=== PATIENT | female | born 1965 | race African-American/Black ===

== ENCOUNTER 2020-06-22 16:14 | Inpatient (IN) | payer MEDICAID, OTHER, SELFPAY ==
[~2020-06-22] VITALS: Ht 165.1 cm; Wt 139.3 kg
[2020-06-22] MEDS: IPRATROPIUM/ALBUTEROL 0.5-3(2.5)MG/3ML NEB NEB SCH (02:24)
[2020-06-22] MEDS ORDERED: MIDAZOLAM HCL 100 MG in DEXT 5% WATER 80 ML IV ONE (16:45)
[2020-06-22] MEDS ORDERED: MIDAZOLAM HCL 100 MG in DEXT 5% WATER 80 ML IV PRN (17:00)
[2020-06-22] MEDS: MIDAZOLAM HCL 2 MG/2 ML VIAL IV ONE ×2 (17:13→17:51)
[2020-06-22 17:15] LABS: BASOPHILS % 0.6 % (0.0-2.0); EOSINOPHILS % 2.1 % (0.0-5.0); HEMATOCRIT. 40.2 % (36.0-48.0); HEMOGLOBIN. 12.8 g/dL (12.0-16.0); LYMPHOCYTES % 41.8 % (20.0-50.0); MEAN CORPUSCULAR HEMOGLOBIN 29.5 pg (28.0-32.0); MEAN CORPUSCULAR VOLUME 92.2 fL (81.0-99.0); MEAN PLATELET VOLUME 11.3 fl (7.4-10.4); MONOCYTES % 5.9 % (2.0-8.0); NEUTROPHILS % 49.6 % (40.0-76.0); PLATELET 327 x1000/uL (130-400); RED BLOOD CELL COUNT 4.36 mill/uL (4.2-5.4); RED CELL DISTRIBUTION WIDTH 16.4 % (11.6-14.6)
[2020-06-22 17:24] LABS: CHLORIDE 107 mEq/L (98-107)
[2020-06-22 17:27] LABS: BG BASE EXCESS -10.2 mmol/L (-2.0-2.0); BG CARBOXYHEMOGLOBIN 0.3 % (0.5-1.5); BG DEOXYHEMOGLOBIN 5.1 % (0.0-5.0); BG FRACTION INSPIRED OXYGEN 100; BG METHEMOGLOBIN 0.2 % (0.0-1.5); BG OXYGEN SATURATION 94.9 % (92.0-98.5); BG OXYHEMOGLOBIN 94.4 % (94.0-97.0); BG PCO2 55.3 mmHg (35.0-45.0); BG PH 7.153 (7.350-7.450); BG PO2 92.7 mmHg (75.0-100.0); BG SAMPLE SITE RIGHT RADIAL; BG TOTAL HEMOGLOBIN 13.8 g/dL (12.0-18.0); BG TOTAL RESPIRATORY RATE 21 b/min; BG VENT MODE VENT - AC
[2020-06-22 17:36] LABS: INR 1.1; PROTHROMBIN TIME 11.1 sec (9.6-11.0)
[2020-06-22] MEDS ORDERED: NITROGLYCERIN OINT 1GM/INCH UDPKT TD ONE (18:30)
[2020-06-22] MEDS ORDERED: ATROPINE SULFATE 1MG/10ML SYR ONE (19:30)
[2020-06-22] MEDS ORDERED: PROPOFOL 10MG/ML 100ML 100 ML IV SCH (19:30)
[2020-06-22] MEDS ORDERED: EPINEPHRINE 0.1MG/ML (1:10,000) 10ML SYR ONE (19:30)
[2020-06-22] MEDS ORDERED: PIPERACILLIN/TAZ 3.375G PREMIX 50 ML IV ONE (20:00)
[2020-06-22] MEDS ORDERED: VANCOMYCIN 1 G PREMIX 200 ML IV ONE (20:00)
[2020-06-22] MEDS ORDERED: IPRATROPIUM/ALBUTEROL 0.5-3(2.5)MG/3ML NEB NEB PRN (23:30)
[2020-06-22] MEDS ORDERED: ACETAMINOPHEN 325MG TABLET PO PRN (23:30)
[2020-06-22] MEDS ORDERED: ENOXAPARIN 40MG/0.4ML SYR SUBCUT SCH (23:30)
[2020-06-22] MEDS ORDERED: ONDANSETRON HCL 4MG/2ML INJ IV PRN (23:30)
[2020-06-23] VITALS (48 sets, daily range): BP systolic 68–203; BP diastolic 19–121
[2020-06-23] MEDS: FUROSEMIDE 40MG/4ML VIAL IV SCH ×2 (00:40→09:51)
[2020-06-23] MEDS ORDERED: KCL 20MEQ/100ML PREMIX 100 ML IV SCH (01:00)
[2020-06-23 01:45] LABS: CHLORIDE 109 mEq/L (98-107)
[2020-06-23 02:37] LABS: HCG SCREEN NEGATIVE
[2020-06-23] MEDS: PANTOPRAZOLE SODIUM 40 MG/VIAL IV SCH (04:00)
[2020-06-23] MEDS: IPRATROPIUM/ALBUTEROL 0.5-3(2.5)MG/3ML NEB NEB SCH ×5 (04:04→20:17)
[2020-06-23] MEDS ORDERED: PIPERACILLIN/TAZ 3.375G PREMIX 50 ML IV SCH (04:30)
[2020-06-23] MEDS ORDERED: IOHEXOL-350 100 ML BOTTLE ONE (06:18)
[2020-06-23] MEDS ORDERED: VANCOMYCIN 1 G PREMIX 200 ML IV SCH ×2 (08:00→10:00)
[2020-06-23] MEDS ORDERED: ENOXAPARIN 30MG/0.3ML SYR SUBCUT SCH (09:00)
[2020-06-23] MEDS ORDERED: PANTOPRAZOLE SODIUM 40 MG/VIAL IV SCH (10:45)
[2020-06-23] MEDS ORDERED: DEXTROSE 50% WATER 50ML SYRINGE IV PRN (10:45)
[2020-06-23 10:58] LABS: BG BASE EXCESS 2.2 mmol/L (-2.0-2.0); BG CARBOXYHEMOGLOBIN 0.1 % (0.5-1.5); BG FRACTION INSPIRED OXYGEN 100; BG HCO3 ACT 27.1 mmol/L (22.0-26.0); BG METHEMOGLOBIN 0.4 % (0.0-1.5); BG OXYHEMOGLOBIN 98.5 % (94.0-97.0); BG PCO2 43.3 mmHg (35.0-45.0); BG PH 7.415 (7.350-7.450); BG PO2 161.3 mmHg (75.0-100.0); BG SAMPLE SITE RIGHT RADIAL; BG TOTAL HEMOGLOBIN 14.2 g/dL (12.0-18.0); BG VENT MODE VENT - AC
[2020-06-23] MEDS ORDERED: PROPOFOL 10MG/ML 100ML 100 ML IV PRN (11:30)
[2020-06-23] MEDS ORDERED: FUROSEMIDE 40MG/4ML VIAL IVP NR (11:30)
[2020-06-23] MEDS ORDERED: POTASSIUM CHLORIDE 20MEQ/PACKET PO NR ×2 (11:45→20:16)
[2020-06-23 12:00] LABS: BASOPHILS % 0.8 % (0.0-2.0); CREATINE KINASE MB FRACTION 7.5 ng/mL (0.5-3.6); EOSINOPHILS % 0.1 % (0.0-5.0); HEMATOCRIT. 40.4 % (36.0-48.0); HEMOGLOBIN. 13.4 g/dL (12.0-16.0); LYMPHOCYTES % 9.5 % (20.0-50.0); MEAN CORPUSCULAR HEMOGLOBIN 29.2 pg (28.0-32.0); MEAN CORPUSCULAR VOLUME 88.1 fL (81.0-99.0); MEAN PLATELET VOLUME 10.3 fl (7.4-10.4); MONOCYTES % 6.5 % (2.0-8.0); NEUTROPHILS % 83.1 % (40.0-76.0); PLATELET 284 x1000/uL (130-400); RED BLOOD CELL COUNT 4.59 mill/uL (4.2-5.4); RED CELL DISTRIBUTION WIDTH 16.4 % (11.6-14.6)
[2020-06-23] MEDS ORDERED: PIPERACILLIN/TAZOBACTAM 3.375 G in DEXT 5% WATER 100 ML IV SCH (12:00)
[2020-06-23] MEDS: BLOOD SUGAR DIAGNOSTIC STRIP TEST SCH ×2 (12:07→16:54)
[2020-06-23] MEDS: PIPERACILLIN/TAZOBACTAM 3.375 G in DEXT 5% WATER 100 ML IV SCH ×2 (12:13→21:21)
[2020-06-23] MEDS: VANCOMYCIN 1 G PREMIX 200 ML IV SCH ×2 (12:13→21:22)
[2020-06-23] MEDS: INSULIN LISPRO 100 UNITS/ML SUBCUT SCH ×2 (12:27→16:54)
[2020-06-23] MEDS: NITROGLYCERIN 50MG PREMIX 250 ML IV SCH ×2 (12:34→22:11)
[2020-06-23 12:48] LABS: PHOSPHORUS 3.4 mg/dL (2.5-4.9)
[2020-06-23 12:52] LABS: T4 FREE 1.31 ng/dL (0.76-1.46)
[2020-06-23] MEDS: ASPIRIN 81MG TABLET PO SCH (13:11)
[2020-06-23] MEDS: LISINOPRIL 20MG TABLET PO SCH (13:12)
[2020-06-23] MEDS: PROPOFOL 10MG/ML 100ML 100 ML IV PRN ×2 (14:01→20:41)
[2020-06-23] MEDS: FUROSEMIDE 100MG/10ML VIAL IVP SCH (16:58)
[2020-06-23 17:13] LABS: CLARITY URINE CLEAR (CLEAR); COLOR URINE YELLOW (YELLOW); KETONES URINE NEGATIVE (NEGATIVE); LEUKOCYTE ESTERASE URINE NEGATIVE (NEGATIVE); NITRITE URINE NEGATIVE (NEGATIVE); OCCULT BLOOD URINE 2+ (NEGATIVE); PH URINE 7.5 (4.5-8.0); PROTEIN URINE NEGATIVE (NEGATIVE); SPECIFIC GRAVITY URINE 1.013 (1.005-1.030); UROBILINOGEN URINE 0.2 E.U./dL (0.2-1.0)
[2020-06-23 17:44] LABS: *AMPHETAMINES SCREEN URINE NEGATIVE (NEGATIVE); *BARBITURATES SCREEN URINE NEGATIVE (NEGATIVE)
[2020-06-23 17:45] LABS: *BENZODIAZEPINES SCREEN URINE PRESUMTIVE POSITIVE (NEGATIVE); *COCAINE SCREEN URINE NEGATIVE (NEGATIVE); CANNABINOID URINE SCREEN NEGATIVE (NEGATIVE); METHADONE URINE SCREEN NEGATIVE (NEGATIVE); OPIATES URINE SCREEN NEGATIVE (NEGATIVE); PHENCYCLIDINE URINE SCREEN NEGATIVE (NEGATIVE)
[2020-06-23 18:08] LABS: CREATINE KINASE MB FRACTION 4.4 ng/mL (0.5-3.6)
[2020-06-23 18:36] LABS: HEPATITIS B SURFACE ANTIGEN NEGATIVE
[2020-06-23 19:06] LABS: HEPATITIS A AB IGM NEGATIVE (NEGATIVE)
[2020-06-23] MEDS: CARVEDILOL 3.125 MG TABLET PO SCH (20:43)
[2020-06-23] MEDS: ACETAMINOPHEN 650MG/20.3ML UDC PO PRN (22:23)
[2020-06-24] VITALS (96 sets, daily range): BP systolic 96–182; BP diastolic 48–129
[2020-06-24] MEDS: INSULIN LISPRO 100 UNITS/ML SUBCUT SCH ×4 (00:06→18:00)
[2020-06-24] MEDS: BLOOD SUGAR DIAGNOSTIC STRIP TEST SCH ×4 (00:06→18:59)
[2020-06-24] MEDS: IPRATROPIUM/ALBUTEROL 0.5-3(2.5)MG/3ML NEB NEB SCH ×6 (00:08→20:13)
[2020-06-24] MEDS: PIPERACILLIN/TAZOBACTAM 3.375 G in DEXT 5% WATER 100 ML IV SCH ×3 (03:31→22:34)
[2020-06-24] MEDS ORDERED: POTASSIUM CHLORIDE 20MEQ/PACKET PO NR (08:30)
[2020-06-24 10:02] LABS: BG CARBOXYHEMOGLOBIN 0.5 % (0.5-1.5); BG DEOXYHEMOGLOBIN 4.8 % (0.0-5.0); BG FRACTION INSPIRED OXYGEN 50; BG HCO3 ACT 29.6 mmol/L (22.0-26.0); BG OXYGEN SATURATION 95.2 % (92.0-98.5); BG OXYHEMOGLOBIN 94.7 % (94.0-97.0); BG PCO2 39.5 mmHg (35.0-45.0); BG PH 7.493 (7.350-7.450); BG PO2 72.7 mmHg (75.0-100.0); BG SAMPLE SITE RIGHT RADIAL; BG VENT MODE VENT - AC
[2020-06-24] MEDS: PROPOFOL 10MG/ML 100ML 100 ML IV PRN (10:23)
[2020-06-24] MEDS: PANTOPRAZOLE SODIUM 40 MG/VIAL IV SCH (10:24)
[2020-06-24] MEDS: NITROGLYCERIN 50MG PREMIX 250 ML IV SCH ×3 (10:24→22:39)
[2020-06-24] MEDS: ASPIRIN 81MG TABLET PO SCH (10:25)
[2020-06-24] MEDS: LISINOPRIL 20MG TABLET PO SCH (10:25)
[2020-06-24] MEDS: CARVEDILOL 3.125 MG TABLET PO SCH ×2 (10:26→22:36)
[2020-06-24] MEDS: FUROSEMIDE 100MG/10ML VIAL IVP SCH (12:05)
[2020-06-24 13:06] LABS: HIV SCREEN 4G Non Reactive (Non Reactive)
[2020-06-24] MEDS: VANCOMYCIN 1500MG in DEXTROSE 5% WATER 250ML IV SCH (18:58)
[2020-06-24] MEDS: FUROSEMIDE 40MG/4ML VIAL IVP SCH (18:58)
[2020-06-25] VITALS (95 sets, daily range): BP systolic 117–162; BP diastolic 33–98
[2020-06-25] MEDS: IPRATROPIUM/ALBUTEROL 0.5-3(2.5)MG/3ML NEB NEB SCH ×7 (00:20→23:59)
[2020-06-25] MEDS: PIPERACILLIN/TAZOBACTAM 3.375 G in DEXT 5% WATER 100 ML IV SCH ×4 (04:48→23:27)
[2020-06-25 05:33] LABS: BASOPHILS % 0.4 % (0.0-2.0); EOSINOPHILS % 0.6 % (0.0-5.0); HEMATOCRIT. 33.8 % (36.0-48.0); HEMOGLOBIN. 11.3 g/dL (12.0-16.0); LYMPHOCYTES % 13.7 % (20.0-50.0); MEAN CORPUSCULAR HEMOGLOBIN 29.2 pg (28.0-32.0); MEAN CORPUSCULAR VOLUME 87.5 fL (81.0-99.0); MEAN PLATELET VOLUME 10.5 fl (7.4-10.4); MONOCYTES % 10.8 % (2.0-8.0); NEUTROPHILS % 74.5 % (40.0-76.0); PLATELET 236 x1000/uL (130-400); RED BLOOD CELL COUNT 3.86 mill/uL (4.2-5.4); RED CELL DISTRIBUTION WIDTH 15.9 % (11.6-14.6)
[2020-06-25 05:35] LABS: CHLORIDE 105 mEq/L (98-107)
[2020-06-25 05:47] LABS: PHOSPHORUS 2.6 mg/dL (2.5-4.9)
[2020-06-25] MEDS: INSULIN LISPRO 100 UNITS/ML SUBCUT SCH ×5 (06:00→23:28)
[2020-06-25] MEDS: BLOOD SUGAR DIAGNOSTIC STRIP TEST SCH ×5 (06:00→23:28)
[2020-06-25] MEDS ORDERED: POTASSIUM CHLORIDE 20MEQ/PACKET PO ONE (09:30)
[2020-06-25] MEDS: ASPIRIN 81MG TABLET PO SCH (09:38)
[2020-06-25] MEDS: FUROSEMIDE 40MG/4ML VIAL IVP SCH ×2 (09:38→17:37)
[2020-06-25] MEDS: PANTOPRAZOLE SODIUM 40 MG/VIAL IV SCH (09:38)
[2020-06-25] MEDS: CARVEDILOL 3.125 MG TABLET PO SCH (09:39)
[2020-06-25] MEDS: LISINOPRIL 20MG TABLET PO SCH (09:40)
[2020-06-25] MEDS ORDERED: LISINOPRIL 20MG TABLET PO NR (10:00)
[2020-06-25 10:19] LABS: BG BASE EXCESS -0.5 mmol/L (-2.0-2.0); BG CARBOXYHEMOGLOBIN 0.3 % (0.5-1.5); BG DEOXYHEMOGLOBIN 3.1 % (0.0-5.0); BG FRACTION INSPIRED OXYGEN 40; BG METHEMOGLOBIN 0.3 % (0.0-1.5); BG OXYGEN SATURATION 96.9 % (92.0-98.5); BG OXYHEMOGLOBIN 96.3 % (94.0-97.0); BG PCO2 29.7 mmHg (35.0-45.0); BG PH 7.487 (7.350-7.450); BG SAMPLE SITE RIGHT RADIAL; BG TOTAL HEMOGLOBIN 12.5 g/dL (12.0-18.0); BG TOTAL RESPIRATORY RATE 23 b/min; BG VENT MODE VENT - AC
[2020-06-25] MEDS: POTASSIUM CHLORIDE INJ 40 MEQ in DEXT 5% WATER 250 ML IV SCH ×3 (10:53→23:27)
[2020-06-25] MEDS: NITROGLYCERIN 50MG PREMIX 250 ML IV SCH ×3 (12:16→22:08)
[2020-06-25 16:49] LABS: CHLORIDE 105 mEq/L (98-107)
[2020-06-25] MEDS: VANCOMYCIN 1500MG in DEXTROSE 5% WATER 250ML IV SCH (18:17)
[2020-06-25] MEDS: CARVEDILOL 12.5MG TABLET PO SCH (20:37)
[2020-06-25] MEDS: PROPOFOL 10MG/ML 100ML 100 ML IV PRN (23:36)
[2020-06-26] VITALS (90 sets, daily range): BP systolic 90–185; BP diastolic 51–105
[2020-06-26] MEDS: LABETALOL 5MG/ML SYR 20 MG/4 ML SYRINGE IV PRN (02:24)
[2020-06-26] MEDS: NITROGLYCERIN 50MG PREMIX 250 ML IV SCH ×2 (02:34→08:14)
[2020-06-26] MEDS: IPRATROPIUM/ALBUTEROL 0.5-3(2.5)MG/3ML NEB NEB SCH ×5 (03:54→20:26)
[2020-06-26] MEDS ORDERED: NICARDIPINE 100 MG in SODIUM CHLORIDE 0.9% 60 ML IV PRN (04:15)
[2020-06-26] MEDS: NICARDIPINE 40MG/200ML PREMIX 200 ML IV PRN ×2 (04:17→12:07)
[2020-06-26 05:39] LABS: BASOPHILS % 0.4 % (0.0-2.0); EOSINOPHILS % 1.9 % (0.0-5.0); HEMATOCRIT. 35.4 % (36.0-48.0); HEMOGLOBIN. 11.8 g/dL (12.0-16.0); LYMPHOCYTES % 10.6 % (20.0-50.0); MEAN CORPUSCULAR HEMOGLOBIN 29.4 pg (28.0-32.0); MEAN CORPUSCULAR VOLUME 88.3 fL (81.0-99.0); MEAN PLATELET VOLUME 10.3 fl (7.4-10.4); MONOCYTES % 9.6 % (2.0-8.0); NEUTROPHILS % 77.5 % (40.0-76.0); PLATELET 250 x1000/uL (130-400); RED BLOOD CELL COUNT 4.01 mill/uL (4.2-5.4); RED CELL DISTRIBUTION WIDTH 16.2 % (11.6-14.6)
[2020-06-26 05:48] LABS: CHLORIDE 105 mEq/L (98-107)
[2020-06-26] MEDS: INSULIN LISPRO 100 UNITS/ML SUBCUT SCH ×4 (06:00→23:27)
[2020-06-26] MEDS: BLOOD SUGAR DIAGNOSTIC STRIP TEST SCH ×4 (06:13→23:27)
[2020-06-26] MEDS: PIPERACILLIN/TAZOBACTAM 3.375 G in DEXT 5% WATER 100 ML IV SCH ×4 (06:13→23:27)
[2020-06-26] MEDS: FUROSEMIDE 40MG/4ML VIAL IVP SCH ×2 (06:16→17:13)
[2020-06-26] MEDS ORDERED: POTASSIUM CHLORIDE 20MEQ/PACKET PO NR (08:00)
[2020-06-26] MEDS: CARVEDILOL 12.5MG TABLET PO SCH ×2 (08:15→22:15)
[2020-06-26] MEDS: PANTOPRAZOLE SODIUM 40 MG/VIAL IV SCH (08:16)
[2020-06-26] MEDS: ASPIRIN 81MG TABLET PO SCH (08:17)
[2020-06-26] MEDS: LISINOPRIL 40MG TABLET PO SCH (08:17)
[2020-06-26 08:35] LABS: BG BASE EXCESS 3.7 mmol/L (-2.0-2.0); BG CARBOXYHEMOGLOBIN 0.9 % (0.5-1.5); BG DEOXYHEMOGLOBIN 3.3 % (0.0-5.0); BG HCO3 ACT 26.8 mmol/L (22.0-26.0); BG METHEMOGLOBIN 0.4 % (0.0-1.5); BG OXYGEN SATURATION 96.7 % (92.0-98.5); BG OXYHEMOGLOBIN 95.4 % (94.0-97.0); BG PCO2 36.1 mmHg (35.0-45.0); BG PH 7.489 (7.350-7.450); BG PO2 82.8 mmHg (75.0-100.0); BG SAMPLE SITE RIGHT RADIAL; BG TOTAL HEMOGLOBIN 15.2 g/dL (12.0-18.0); BG VENT MODE VENT - AC
[2020-06-26] MEDS: ENOXAPARIN 40MG/0.4ML SYR SUBCUT SCH ×2 (09:03→21:00)
[2020-06-26] MEDS ORDERED: VANCOMYCIN 1 G PREMIX 200 ML IV SCH (11:00)
[2020-06-26] MEDS: HYDRALAZINE HCL 25MG TABLET PO SCH ×2 (14:00→22:21)
[2020-06-26] MEDS: PROPOFOL 10MG/ML 100ML 100 ML IV PRN (16:17)
[2020-06-27] VITALS (84 sets, daily range): BP systolic 42–163; BP diastolic 16–104
[2020-06-27] MEDS: IPRATROPIUM/ALBUTEROL 0.5-3(2.5)MG/3ML NEB NEB SCH ×6 (00:11→20:31)
[2020-06-27] MEDS: PROPOFOL 10MG/ML 100ML 100 ML IV PRN ×5 (00:41→20:34)
[2020-06-27] MEDS: NICARDIPINE 40MG/200ML PREMIX 200 ML IV PRN ×2 (01:41→19:41)
[2020-06-27] MEDS: PIPERACILLIN/TAZOBACTAM 3.375 G in DEXT 5% WATER 100 ML IV SCH ×3 (05:39→18:09)
[2020-06-27] MEDS: HYDRALAZINE HCL 25MG TABLET PO SCH ×2 (05:40→15:04)
[2020-06-27] MEDS: BLOOD SUGAR DIAGNOSTIC STRIP TEST SCH ×4 (05:47→23:45)
[2020-06-27] MEDS: INSULIN LISPRO 100 UNITS/ML SUBCUT SCH ×4 (05:47→23:45)
[2020-06-27 05:50] LABS: BASOPHILS % 0.8 % (0.0-2.0); EOSINOPHILS % 4.3 % (0.0-5.0); HEMATOCRIT. 39.8 % (36.0-48.0); HEMOGLOBIN. 13.2 g/dL (12.0-16.0); LYMPHOCYTES % 14.4 % (20.0-50.0); MEAN CORPUSCULAR HEMOGLOBIN 29.1 pg (28.0-32.0); MEAN PLATELET VOLUME 10.6 fl (7.4-10.4); NEUTROPHILS % 68.5 % (40.0-76.0); PLATELET 318 x1000/uL (130-400); RED BLOOD CELL COUNT 4.52 mill/uL (4.2-5.4); RED CELL DISTRIBUTION WIDTH 16.3 % (11.6-14.6)
[2020-06-27 05:51] LABS: CHLORIDE 106 mEq/L (98-107)
[2020-06-27 08:44] LABS: BG BASE EXCESS 4.6 mmol/L (-2.0-2.0); BG CARBOXYHEMOGLOBIN 0.3 % (0.5-1.5); BG DEOXYHEMOGLOBIN 2.7 % (0.0-5.0); BG FRACTION INSPIRED OXYGEN 50; BG HCO3 ACT 27.2 mmol/L (22.0-26.0); BG METHEMOGLOBIN 0.1 % (0.0-1.5); BG OXYGEN SATURATION 97.3 % (92.0-98.5); BG OXYHEMOGLOBIN 96.9 % (94.0-97.0); BG PCO2 33.9 mmHg (35.0-45.0); BG PH 7.522 (7.350-7.450); BG PO2 86.7 mmHg (75.0-100.0); BG SAMPLE SITE RIGHT RADIAL; BG TOTAL HEMOGLOBIN 13.2 g/dL (12.0-18.0); BG VENT MODE VENT - AC
[2020-06-27] MEDS: ASPIRIN 81MG TABLET PO SCH (08:58)
[2020-06-27] MEDS: CARVEDILOL 12.5MG TABLET PO SCH ×2 (08:59→20:02)
[2020-06-27] MEDS: PANTOPRAZOLE SODIUM 40 MG/VIAL IV SCH (08:59)
[2020-06-27] MEDS: ENOXAPARIN 40MG/0.4ML SYR SUBCUT SCH ×2 (09:27→20:03)
[2020-06-27] MEDS: LISINOPRIL 40MG TABLET PO SCH (09:34)
[2020-06-27] MEDS: FUROSEMIDE 40MG/4ML VIAL IVP SCH (09:34)
[2020-06-27] MEDS ORDERED: POTASSIUM CHLORIDE INJ 30 MEQ in DEXT 5% WATER 250 ML IV NR (13:00)
[2020-06-27] MEDS: ACETAMINOPHEN 650MG/20.3ML UDC PO PRN (20:01)
[2020-06-27] MEDS: HYDRALAZINE HCL 50MG TABLET PO SCH (21:46)
[2020-06-27] MEDS: NICARDIPINE 100 MG in SODIUM CHLORIDE 0.9% 60 ML IV PRN (23:30)
[2020-06-28] VITALS (78 sets, daily range): BP systolic 80–162; BP diastolic 32–79
[2020-06-28] MEDS: PROPOFOL 10MG/ML 100ML 100 ML IV PRN ×7 (00:02→23:35)
[2020-06-28] MEDS: IPRATROPIUM/ALBUTEROL 0.5-3(2.5)MG/3ML NEB NEB SCH ×7 (00:11→23:51)
[2020-06-28] MEDS: ACETAMINOPHEN 650MG/20.3ML UDC PO PRN (04:45)
[2020-06-28] MEDS: HYDRALAZINE HCL 50MG TABLET PO SCH ×4 (05:22→22:20)
[2020-06-28 05:38] LABS: BASOPHILS % 0.7 % (0.0-2.0); HEMATOCRIT. 38.5 % (36.0-48.0); HEMOGLOBIN. 12.6 g/dL (12.0-16.0); LYMPHOCYTES % 15.2 % (20.0-50.0); MEAN CORPUSCULAR HEMOGLOBIN 29.3 pg (28.0-32.0); MEAN CORPUSCULAR VOLUME 89.5 fL (81.0-99.0); MEAN PLATELET VOLUME 10.4 fl (7.4-10.4); MONOCYTES % 9.1 % (2.0-8.0); PLATELET 281 x1000/uL (130-400); RED BLOOD CELL COUNT 4.31 mill/uL (4.2-5.4); RED CELL DISTRIBUTION WIDTH 16.4 % (11.6-14.6)
[2020-06-28 05:47] LABS: CHLORIDE 107 mEq/L (98-107)
[2020-06-28] MEDS: INSULIN LISPRO 100 UNITS/ML SUBCUT SCH ×3 (06:00→17:26)
[2020-06-28] MEDS: BLOOD SUGAR DIAGNOSTIC STRIP TEST SCH ×3 (06:01→17:19)
[2020-06-28 08:06] LABS: BG BASE EXCESS -9.9 mmol/L (-2.0-2.0); BG CARBOXYHEMOGLOBIN 0.3 % (0.5-1.5); BG FRACTION INSPIRED OXYGEN 50; BG HCO3 ACT 14.1 mmol/L (22.0-26.0); BG METHEMOGLOBIN 0.2 % (0.0-1.5); BG OXYHEMOGLOBIN 97.5 % (94.0-97.0); BG PCO2 25.6 mmHg (35.0-45.0); BG PH 7.358 (7.350-7.450); BG PO2 129.2 mmHg (75.0-100.0); BG SAMPLE SITE RIGHT BRACHIAL; BG TOTAL HEMOGLOBIN 11.1 g/dL (12.0-18.0); BG VENT MODE VENT - AC
[2020-06-28] MEDS: FUROSEMIDE 40MG/4ML VIAL IVP SCH (08:23)
[2020-06-28] MEDS: PANTOPRAZOLE SODIUM 40 MG/VIAL IV SCH (08:23)
[2020-06-28] MEDS: ENOXAPARIN 40MG/0.4ML SYR SUBCUT SCH ×2 (08:24→21:04)
[2020-06-28] MEDS: CARVEDILOL 6.25 MG TABLET PO SCH ×2 (08:25→20:51)
[2020-06-28] MEDS: LISINOPRIL 40MG TABLET PO SCH (08:25)
[2020-06-28] MEDS: ASPIRIN 81MG TABLET PO SCH (08:25)
[2020-06-28] MEDS: NICARDIPINE 100 MG in SODIUM CHLORIDE 0.9% 60 ML IV PRN ×2 (08:44→17:58)
[2020-06-28] MEDS ORDERED: LISI-604 MT (12:51)
[2020-06-28] MEDS ORDERED: POTASSIUM CHLORIDE INJ 40 MEQ in DEXT 5% WATER 250 ML IV NR (14:00)
[2020-06-29] VITALS (101 sets, daily range): BP systolic 81–189; BP diastolic 22–167
[2020-06-29] MEDS: BLOOD SUGAR DIAGNOSTIC STRIP TEST SCH ×4 (00:01→17:47)
[2020-06-29] MEDS: IPRATROPIUM/ALBUTEROL 0.5-3(2.5)MG/3ML NEB NEB SCH ×5 (03:55→19:53)
[2020-06-29] MEDS: PROPOFOL 10MG/ML 100ML 100 ML IV PRN ×6 (04:25→23:30)
[2020-06-29] MEDS: NICARDIPINE 100 MG in SODIUM CHLORIDE 0.9% 60 ML IV PRN (04:26)
[2020-06-29 05:32] LABS: BASOPHILS % 0.6 % (0.0-2.0); EOSINOPHILS % 1.2 % (0.0-5.0); HEMATOCRIT. 37.5 % (36.0-48.0); HEMOGLOBIN. 12.4 g/dL (12.0-16.0); LYMPHOCYTES % 9.9 % (20.0-50.0); MEAN CORPUSCULAR HEMOGLOBIN 29.4 pg (28.0-32.0); MEAN PLATELET VOLUME 10.7 fl (7.4-10.4); MONOCYTES % 9.4 % (2.0-8.0); NEUTROPHILS % 78.9 % (40.0-76.0); PLATELET 280 x1000/uL (130-400); RED BLOOD CELL COUNT 4.21 mill/uL (4.2-5.4); RED CELL DISTRIBUTION WIDTH 16.7 % (11.6-14.6)
[2020-06-29 05:58] LABS: CHLORIDE 108 mEq/L (98-107)
[2020-06-29] MEDS: INSULIN LISPRO 100 UNITS/ML SUBCUT SCH ×4 (06:00→17:47)
[2020-06-29] MEDS: HYDRALAZINE HCL 50MG TABLET PO SCH (06:38)
[2020-06-29] MEDS: FUROSEMIDE 40MG/4ML VIAL IVP SCH (09:07)
[2020-06-29] MEDS: PANTOPRAZOLE SODIUM 40 MG/VIAL IV SCH (09:07)
[2020-06-29] MEDS: ASPIRIN 81MG TABLET PO SCH (09:07)
[2020-06-29] MEDS: LISINOPRIL 40MG TABLET PO SCH (09:07)
[2020-06-29] MEDS: CARVEDILOL 6.25 MG TABLET PO SCH ×2 (09:17→20:54)
[2020-06-29] MEDS: ENOXAPARIN 40MG/0.4ML SYR SUBCUT SCH ×2 (09:18→20:58)
[2020-06-29] MEDS: ACETAMINOPHEN 650MG/20.3ML UDC PO PRN (09:18)
[2020-06-29 09:20] LABS: BG BASE EXCESS 1.6 mmol/L (-2.0-2.0); BG CARBOXYHEMOGLOBIN 0.3 % (0.5-1.5); BG DEOXYHEMOGLOBIN 2.5 % (0.0-5.0); BG FRACTION INSPIRED OXYGEN 50; BG HCO3 ACT 25.4 mmol/L (22.0-26.0); BG METHEMOGLOBIN 0.4 % (0.0-1.5); BG OXYGEN SATURATION 97.5 % (92.0-98.5); BG OXYHEMOGLOBIN 96.8 % (94.0-97.0); BG PH 7.454 (7.350-7.450); BG PO2 97.9 mmHg (75.0-100.0); BG SAMPLE SITE RIGHT RADIAL; BG TOTAL HEMOGLOBIN 12.8 g/dL (12.0-18.0); BG VENT MODE VENT - AC
[2020-06-29] MEDS: HYDRALAZINE HCL 100MG TABLET PO SCH ×2 (13:28→22:05)
[2020-06-29] MEDS: NITROPRUSSIDE 50 MG in SODIUM CHLORIDE 0.9% 250 ML IV PRN (15:24)
[2020-06-29] MEDS ORDERED: POTASSIUM CHLORIDE INJ 40 MEQ in DEXT 5% WATER 250 ML IV NR (16:30)
[2020-06-29] MEDS: FUROSEMIDE 40MG TABLET PO SCH (20:53)
[2020-06-30] VITALS (90 sets, daily range): BP systolic 79–167; BP diastolic 28–132
[2020-06-30] MEDS: IPRATROPIUM/ALBUTEROL 0.5-3(2.5)MG/3ML NEB NEB SCH ×6 (00:23→19:56)
[2020-06-30] MEDS: BLOOD SUGAR DIAGNOSTIC STRIP TEST SCH ×4 (00:58→17:30)
[2020-06-30] MEDS: NITROPRUSSIDE 50 MG in SODIUM CHLORIDE 0.9% 250 ML IV PRN ×2 (01:31→09:29)
[2020-06-30] MEDS: PROPOFOL 10MG/ML 100ML 100 ML IV PRN ×6 (03:52→20:40)
[2020-06-30] MEDS: HYDRALAZINE HCL 100MG TABLET PO SCH ×3 (05:42→21:25)
[2020-06-30 05:55] LABS: CHLORIDE 110 mEq/L (98-107)
[2020-06-30] MEDS: INSULIN LISPRO 100 UNITS/ML SUBCUT SCH ×4 (06:00→17:30)
[2020-06-30 06:09] LABS: BASOPHILS % 0.8 % (0.0-2.0); EOSINOPHILS % 1.2 % (0.0-5.0); HEMATOCRIT. 35.8 % (36.0-48.0); HEMOGLOBIN. 11.8 g/dL (12.0-16.0); LYMPHOCYTES % 10.7 % (20.0-50.0); MEAN CORPUSCULAR HEMOGLOBIN 29.1 pg (28.0-32.0); MEAN CORPUSCULAR VOLUME 88.1 fL (81.0-99.0); MEAN PLATELET VOLUME 10.4 fl (7.4-10.4); MONOCYTES % 11.7 % (2.0-8.0); NEUTROPHILS % 75.6 % (40.0-76.0); PLATELET 301 x1000/uL (130-400); RED BLOOD CELL COUNT 4.06 mill/uL (4.2-5.4); RED CELL DISTRIBUTION WIDTH 16.5 % (11.6-14.6)
[2020-06-30] MEDS ORDERED: PROPOFOL 10MG/ML 100ML 100 ML IV SCH (08:00)
[2020-06-30] MEDS: FUROSEMIDE 40MG TABLET PO SCH ×2 (08:39→20:58)
[2020-06-30] MEDS: PANTOPRAZOLE SODIUM 40 MG/VIAL IV SCH (08:39)
[2020-06-30] MEDS: ASPIRIN 81MG TABLET PO SCH (08:40)
[2020-06-30] MEDS: CARVEDILOL 6.25 MG TABLET PO SCH ×2 (08:40→20:59)
[2020-06-30] MEDS: LISINOPRIL 40MG TABLET PO SCH (08:40)
[2020-06-30] MEDS: ENOXAPARIN 40MG/0.4ML SYR SUBCUT SCH ×2 (08:41→20:59)
[2020-06-30 09:01] LABS: BG BASE EXCESS 3.4 mmol/L (-2.0-2.0); BG CARBOXYHEMOGLOBIN 0.3 % (0.5-1.5); BG DEOXYHEMOGLOBIN 3.2 % (0.0-5.0); BG HCO3 ACT 26.6 mmol/L (22.0-26.0); BG METHEMOGLOBIN 0.2 % (0.0-1.5); BG OXYGEN SATURATION 96.8 % (92.0-98.5); BG OXYHEMOGLOBIN 96.3 % (94.0-97.0); BG PH 7.487 (7.350-7.450); BG PO2 84.4 mmHg (75.0-100.0); BG SAMPLE SITE RIGHT RADIAL; BG TOTAL HEMOGLOBIN 12.9 g/dL (12.0-18.0); BG VENT MODE VENT - AC
[2020-06-30] MEDS ORDERED: LEVETIRACETAM 500 MG in SODIUM CHLORIDE 0.9% 100 ML IV SCH (10:30)
[2020-06-30] MEDS: LEVETIRACETAM 500MG PREMIX 100 ML IV SCH ×2 (12:39→20:52)
[2020-07-01] VITALS (96 sets, daily range): BP systolic 42–161; BP diastolic 20–141
[2020-07-01] MEDS: IPRATROPIUM/ALBUTEROL 0.5-3(2.5)MG/3ML NEB NEB SCH ×6 (00:06→20:33)
[2020-07-01] MEDS: PROPOFOL 10MG/ML 100ML 100 ML IV PRN ×7 (00:24→21:42)
[2020-07-01] MEDS: BLOOD SUGAR DIAGNOSTIC STRIP TEST SCH ×5 (00:42→23:50)
[2020-07-01] MEDS: HYDRALAZINE HCL 100MG TABLET PO SCH ×3 (05:36→22:38)
[2020-07-01 05:43] LABS: HEMATOCRIT. 36.5 % (36.0-48.0); HEMOGLOBIN. 11.9 g/dL (12.0-16.0); MEAN CORPUSCULAR HEMOGLOBIN 28.9 pg (28.0-32.0); MEAN CORPUSCULAR VOLUME 88.4 fL (81.0-99.0); MEAN PLATELET VOLUME 10.4 fl (7.4-10.4); PLATELET 310 x1000/uL (130-400); RED BLOOD CELL COUNT 4.13 mill/uL (4.2-5.4); RED CELL DISTRIBUTION WIDTH 16.6 % (11.6-14.6)
[2020-07-01] MEDS: INSULIN LISPRO 100 UNITS/ML SUBCUT SCH ×5 (06:00→23:50)
[2020-07-01 06:12] LABS: CHLORIDE 113 mEq/L (98-107)
[2020-07-01] MEDS: LISINOPRIL 40MG TABLET PO SCH (08:23)
[2020-07-01] MEDS: ASPIRIN 81MG TABLET PO SCH (08:23)
[2020-07-01] MEDS: FUROSEMIDE 40MG TABLET PO SCH ×2 (08:25→20:23)
[2020-07-01] MEDS: CARVEDILOL 6.25 MG TABLET PO SCH (08:25)
[2020-07-01] MEDS: PANTOPRAZOLE SODIUM 40 MG/VIAL IV SCH (08:25)
[2020-07-01] MEDS: ENOXAPARIN 40MG/0.4ML SYR SUBCUT SCH ×2 (08:26→20:23)
[2020-07-01] MEDS ORDERED: SPIRONOLACTONE 25MG TABLET PO SCH (09:00)
[2020-07-01 09:54] LABS: PLATELET ESTIMATE NORMAL
[2020-07-01] MEDS: LEVETIRACETAM 500MG PREMIX 100 ML IV SCH ×2 (10:00→20:22)
[2020-07-01] MEDS ORDERED: ISOSORBIDE MONONITRATE 30MG TABLET SR 24HR PO SCH (13:00)
[2020-07-01] MEDS: ISOSORBIDE DINITRATE 10MG TABLET PO SCH (18:03)
[2020-07-01] MEDS: CARVEDILOL 12.5MG TABLET PO SCH (20:23)
[2020-07-01] MEDS: ACETAMINOPHEN 650MG/20.3ML UDC PO PRN (21:10)
[2020-07-02] VITALS (98 sets, daily range): BP systolic 89–156; BP diastolic 39–109
[2020-07-02] MEDS: IPRATROPIUM/ALBUTEROL 0.5-3(2.5)MG/3ML NEB NEB SCH ×6 (00:21→20:06)
[2020-07-02] MEDS: PROPOFOL 10MG/ML 100ML 100 ML IV PRN ×6 (00:55→23:26)
[2020-07-02 05:35] LABS: BASOPHILS % 0.7 % (0.0-2.0); EOSINOPHILS % 0.4 % (0.0-5.0); HEMATOCRIT. 37.6 % (36.0-48.0); HEMOGLOBIN. 12.4 g/dL (12.0-16.0); LYMPHOCYTES % 7.2 % (20.0-50.0); MEAN CORPUSCULAR HEMOGLOBIN 29.3 pg (28.0-32.0); MEAN CORPUSCULAR VOLUME 88.8 fL (81.0-99.0); MEAN PLATELET VOLUME 10.8 fl (7.4-10.4); MONOCYTES % 14.7 % (2.0-8.0); PLATELET 281 x1000/uL (130-400); RED BLOOD CELL COUNT 4.24 mill/uL (4.2-5.4); RED CELL DISTRIBUTION WIDTH 16.7 % (11.6-14.6)
[2020-07-02 05:43] LABS: CHLORIDE 111 mEq/L (98-107)
[2020-07-02] MEDS: INSULIN LISPRO 100 UNITS/ML SUBCUT SCH ×3 (06:00→17:46)
[2020-07-02] MEDS: HYDRALAZINE HCL 100MG TABLET PO SCH ×3 (06:35→18:01)
[2020-07-02] MEDS: BLOOD SUGAR DIAGNOSTIC STRIP TEST SCH ×3 (06:36→17:46)
[2020-07-02] MEDS: ACETAMINOPHEN 650MG/20.3ML UDC PO PRN (08:17)
[2020-07-02] MEDS: ASPIRIN 81MG TABLET PO SCH (08:25)
[2020-07-02] MEDS: LEVETIRACETAM 500MG PREMIX 100 ML IV SCH ×2 (08:25→20:38)
[2020-07-02] MEDS: FUROSEMIDE 40MG TABLET PO SCH ×2 (08:25→20:38)
[2020-07-02] MEDS: CARVEDILOL 12.5MG TABLET PO SCH ×2 (08:25→20:39)
[2020-07-02] MEDS: LISINOPRIL 40MG TABLET PO SCH (08:25)
[2020-07-02] MEDS: PANTOPRAZOLE SODIUM 40 MG/VIAL IV SCH (08:26)
[2020-07-02] MEDS: ISOSORBIDE DINITRATE 10MG TABLET PO SCH ×2 (08:26→12:57)
[2020-07-02] MEDS: SPIRONOLACTONE 25MG TABLET PO SCH (08:26)
[2020-07-02] MEDS: ENOXAPARIN 40MG/0.4ML SYR SUBCUT SCH ×2 (08:27→20:10)
[2020-07-02 09:09] LABS: BG BASE EXCESS 2.3 mmol/L (-2.0-2.0); BG CARBOXYHEMOGLOBIN 0.1 % (0.5-1.5); BG FRACTION INSPIRED OXYGEN 50; BG HCO3 ACT 25.3 mmol/L (22.0-26.0); BG METHEMOGLOBIN 0.2 % (0.0-1.5); BG OXYHEMOGLOBIN 96.7 % (94.0-97.0); BG PO2 92.1 mmHg (75.0-100.0); BG SAMPLE SITE RIGHT RADIAL; BG VENT MODE VENT - AC
[2020-07-02] MEDS: CEFEPIME 1,000 MG in DEXTROSE 5% WATER 50 ML IV SCH (22:14)
[2020-07-03] VITALS (97 sets, daily range): BP systolic 95–155; BP diastolic 40–88
[2020-07-03] MEDS: IPRATROPIUM/ALBUTEROL 0.5-3(2.5)MG/3ML NEB NEB SCH ×6 (00:14→19:45)
[2020-07-03] MEDS: BLOOD SUGAR DIAGNOSTIC STRIP TEST SCH ×4 (00:33→17:25)
[2020-07-03] MEDS: PROPOFOL 10MG/ML 100ML 100 ML IV PRN ×5 (02:25→23:20)
[2020-07-03] MEDS: INSULIN LISPRO 100 UNITS/ML SUBCUT SCH ×4 (06:00→17:25)
[2020-07-03 06:04] LABS: BASOPHILS % 0.5 % (0.0-2.0); EOSINOPHILS % 0.6 % (0.0-5.0); HEMATOCRIT. 32.8 % (36.0-48.0); HEMOGLOBIN. 10.6 g/dL (12.0-16.0); LYMPHOCYTES % 7.4 % (20.0-50.0); MEAN CORPUSCULAR HEMOGLOBIN 28.8 pg (28.0-32.0); MEAN CORPUSCULAR VOLUME 88.8 fL (81.0-99.0); MONOCYTES % 8.1 % (2.0-8.0); NEUTROPHILS % 83.4 % (40.0-76.0); PLATELET 288 x1000/uL (130-400); RED BLOOD CELL COUNT 3.69 mill/uL (4.2-5.4); RED CELL DISTRIBUTION WIDTH 16.7 % (11.6-14.6)
[2020-07-03] MEDS: HYDRALAZINE HCL 100MG TABLET PO SCH ×2 (06:06→17:51)
[2020-07-03 07:04] LABS: BG BASE EXCESS 0.7 mmol/L (-2.0-2.0); BG CARBOXYHEMOGLOBIN 0.4 % (0.5-1.5); BG DEOXYHEMOGLOBIN 4.1 % (0.0-5.0); BG FRACTION INSPIRED OXYGEN 40; BG HCO3 ACT 24.2 mmol/L (22.0-26.0); BG METHEMOGLOBIN 0.8 % (0.0-1.5); BG OXYGEN SATURATION 95.9 % (92.0-98.5); BG OXYHEMOGLOBIN 94.7 % (94.0-97.0); BG PCO2 34.9 mmHg (35.0-45.0); BG PH 7.458 (7.350-7.450); BG PO2 80.4 mmHg (75.0-100.0); BG SAMPLE SITE RIGHT RADIAL; BG TOTAL HEMOGLOBIN 12.3 g/dL (12.0-18.0); BG VENT MODE VENT - AC
[2020-07-03] MEDS: CEFEPIME 1,000 MG in DEXTROSE 5% WATER 50 ML IV SCH ×2 (08:46→20:18)
[2020-07-03] MEDS: LEVETIRACETAM 500MG PREMIX 100 ML IV SCH ×2 (08:51→20:19)
[2020-07-03] MEDS: ASPIRIN 81MG TABLET PO SCH (08:53)
[2020-07-03] MEDS: SPIRONOLACTONE 25MG TABLET PO SCH (08:54)
[2020-07-03] MEDS: FUROSEMIDE 40MG TABLET PO SCH ×2 (08:54→20:19)
[2020-07-03] MEDS: LISINOPRIL 40MG TABLET PO SCH (08:56)
[2020-07-03] MEDS: CARVEDILOL 12.5MG TABLET PO SCH ×2 (08:57→20:19)
[2020-07-03] MEDS ORDERED: POTASSIUM CHLORIDE 20MEQ/PACKET PO NR (09:15)
[2020-07-03] MEDS: PANTOPRAZOLE SODIUM 40 MG/VIAL IV SCH (09:23)
[2020-07-03] MEDS: ACETAMINOPHEN 650MG/20.3ML UDC PO PRN (12:51)
[2020-07-03] MEDS ORDERED: PROPOFOL 10MG/ML 100ML 100 ML IV PRN (17:45)
[2020-07-04] VITALS (89 sets, daily range): BP systolic 81–158; BP diastolic 31–79
[2020-07-04] MEDS: IPRATROPIUM/ALBUTEROL 0.5-3(2.5)MG/3ML NEB NEB SCH ×6 (00:35→20:13)
[2020-07-04] MEDS: PROPOFOL 10MG/ML 100ML 100 ML IV PRN ×3 (04:54→20:45)
[2020-07-04 05:51] LABS: BASOPHILS % 0.9 % (0.0-2.0); EOSINOPHILS % 1.9 % (0.0-5.0); HEMATOCRIT. 33.2 % (36.0-48.0); HEMOGLOBIN. 10.9 g/dL (12.0-16.0); LYMPHOCYTES % 7.3 % (20.0-50.0); MEAN CORPUSCULAR HEMOGLOBIN 28.9 pg (28.0-32.0); MEAN CORPUSCULAR VOLUME 88.2 fL (81.0-99.0); MEAN PLATELET VOLUME 11.2 fl (7.4-10.4); NEUTROPHILS % 82.9 % (40.0-76.0); PLATELET 305 x1000/uL (130-400); RED BLOOD CELL COUNT 3.77 mill/uL (4.2-5.4); RED CELL DISTRIBUTION WIDTH 16.3 % (11.6-14.6)
[2020-07-04] MEDS: INSULIN LISPRO 100 UNITS/ML SUBCUT SCH ×4 (06:00→18:00)
[2020-07-04] MEDS: BLOOD SUGAR DIAGNOSTIC STRIP TEST SCH ×4 (06:00→18:18)
[2020-07-04] MEDS: HYDRALAZINE HCL 100MG TABLET PO SCH ×2 (06:03→18:00)
[2020-07-04] MEDS: LISINOPRIL 40MG TABLET PO SCH (08:45)
[2020-07-04] MEDS: PANTOPRAZOLE SODIUM 40 MG/VIAL IV SCH ×2 (08:45→20:46)
[2020-07-04] MEDS: CARVEDILOL 12.5MG TABLET PO SCH ×2 (08:45→20:46)
[2020-07-04] MEDS: SPIRONOLACTONE 25MG TABLET PO SCH (08:46)
[2020-07-04] MEDS: LEVETIRACETAM 500MG PREMIX 100 ML IV SCH ×2 (08:51→20:45)
[2020-07-04] MEDS ORDERED: FUROSEMIDE 40MG TABLET PO SCH (09:00)
[2020-07-04] MEDS: CEFEPIME 1,000 MG in DEXTROSE 5% WATER 50 ML IV SCH ×2 (09:02→20:46)
[2020-07-04] MEDS ORDERED: PROPOFOL 200MG/20ML VIAL IV ONE (12:09)
[2020-07-04] MEDS: ACETAMINOPHEN 650MG/20.3ML UDC PO PRN (18:39)
[2020-07-05] VITALS (92 sets, daily range): BP systolic 61–160; BP diastolic 15–136
[2020-07-05] MEDS: IPRATROPIUM/ALBUTEROL 0.5-3(2.5)MG/3ML NEB NEB SCH ×6 (00:27→20:16)
[2020-07-05] MEDS: PROPOFOL 10MG/ML 100ML 100 ML IV PRN ×5 (03:55→22:55)
[2020-07-05 04:43] LABS: BASOPHILS % 1.1 % (0.0-2.0); HEMATOCRIT. 31.3 % (36.0-48.0); HEMOGLOBIN. 10.5 g/dL (12.0-16.0); LYMPHOCYTES % 7.6 % (20.0-50.0); MEAN CORPUSCULAR HEMOGLOBIN 29.4 pg (28.0-32.0); MEAN PLATELET VOLUME 10.8 fl (7.4-10.4); MONOCYTES % 8.1 % (2.0-8.0); NEUTROPHILS % 80.2 % (40.0-76.0); PLATELET 341 x1000/uL (130-400); RED BLOOD CELL COUNT 3.56 mill/uL (4.2-5.4); RED CELL DISTRIBUTION WIDTH 16.2 % (11.6-14.6)
[2020-07-05 04:55] LABS: CHLORIDE 116 mEq/L (98-107)
[2020-07-05 04:58] LABS: PARTIAL THROMBOPLASTIN TIME 32.1 sec (23.4-31.0); PROTHROMBIN TIME 10.9 sec (9.6-11.0)
[2020-07-05] MEDS: INSULIN LISPRO 100 UNITS/ML SUBCUT SCH ×5 (06:00→23:05)
[2020-07-05] MEDS: BLOOD SUGAR DIAGNOSTIC STRIP TEST SCH ×5 (06:00→23:05)
[2020-07-05] MEDS: HYDRALAZINE HCL 100MG TABLET PO SCH ×2 (06:00→18:36)
[2020-07-05] MEDS: LEVETIRACETAM 500MG PREMIX 100 ML IV SCH ×2 (08:27→22:13)
[2020-07-05] MEDS: CARVEDILOL 12.5MG TABLET PO SCH ×3 (09:00→22:04)
[2020-07-05] MEDS: LISINOPRIL 40MG TABLET PO SCH (09:00)
[2020-07-05] MEDS: PANTOPRAZOLE SODIUM 40 MG/VIAL IV SCH ×2 (09:40→22:03)
[2020-07-05] MEDS: CEFEPIME 1,000 MG in DEXTROSE 5% WATER 50 ML IV SCH ×2 (09:40→22:03)
[2020-07-05] MEDS: SPIRONOLACTONE 25MG TABLET PO SCH (09:41)
[2020-07-05] MEDS: FUROSEMIDE 20MG TABLET PO SCH (09:41)
[2020-07-05] MEDS ORDERED: FENTANYL CITRATE/PF 50MCG/ML 2ML VIAL ONE (12:22)
[2020-07-05] MEDS ORDERED: MIDAZOLAM HCL 5 MG/5 ML VIAL ONE (12:22)
[2020-07-06] VITALS (101 sets, daily range): BP systolic 46–172; BP diastolic 22–123
[2020-07-06] MEDS: IPRATROPIUM/ALBUTEROL 0.5-3(2.5)MG/3ML NEB NEB SCH ×6 (00:17→20:37)
[2020-07-06] MEDS: PROPOFOL 10MG/ML 100ML 100 ML IV PRN ×4 (01:30→10:42)
[2020-07-06 05:12] LABS: BASOPHILS % 0.9 % (0.0-2.0); EOSINOPHILS % 2.6 % (0.0-5.0); HEMATOCRIT. 33.2 % (36.0-48.0); LYMPHOCYTES % 10.1 % (20.0-50.0); MEAN CORPUSCULAR HEMOGLOBIN 29.3 pg (28.0-32.0); MEAN PLATELET VOLUME 10.5 fl (7.4-10.4); MONOCYTES % 7.2 % (2.0-8.0); NEUTROPHILS % 79.2 % (40.0-76.0); PLATELET 347 x1000/uL (130-400); RED BLOOD CELL COUNT 3.77 mill/uL (4.2-5.4); RED CELL DISTRIBUTION WIDTH 16.1 % (11.6-14.6)
[2020-07-06] MEDS: HYDRALAZINE HCL 100MG TABLET PO SCH ×2 (06:00→17:08)
[2020-07-06] MEDS: BLOOD SUGAR DIAGNOSTIC STRIP TEST SCH ×4 (06:00→23:23)
[2020-07-06] MEDS: INSULIN LISPRO 100 UNITS/ML SUBCUT SCH ×4 (06:00→23:23)
[2020-07-06] MEDS: CARVEDILOL 12.5MG TABLET PO SCH ×2 (08:16→21:30)
[2020-07-06] MEDS: PANTOPRAZOLE SODIUM 40 MG/VIAL IV SCH ×2 (08:16→21:29)
[2020-07-06] MEDS: FUROSEMIDE 20MG TABLET PO SCH (08:17)
[2020-07-06] MEDS: LEVETIRACETAM 500MG PREMIX 100 ML IV SCH ×2 (08:17→21:29)
[2020-07-06] MEDS: LISINOPRIL 40MG TABLET PO SCH (08:17)
[2020-07-06] MEDS: SPIRONOLACTONE 25MG TABLET PO SCH (08:17)
[2020-07-06] MEDS: CEFEPIME 1,000 MG in DEXTROSE 5% WATER 50 ML IV SCH ×2 (10:29→22:00)
[2020-07-06] MEDS ORDERED: POTASSIUM CHLORIDE 20MEQ TABLET SR PO NR (10:30)
[2020-07-06] MEDS ORDERED: MORPHINE SULFATE 2 MG/ML CPJ (NOT FOR IM USE) IV PRN (12:00)
[2020-07-06] MEDS ORDERED: PROPOFOL 200MG/20ML VIAL IV ONE (15:41)
[2020-07-06] MEDS ORDERED: ROCURONIUM BROMIDE 10MG/ML VIAL 5ML IV ONE (15:41)
[2020-07-06] MEDS: LORAZEPAM 2MG/ML CPJ IV PRN ×2 (15:51→23:40)
[2020-07-07] VITALS (89 sets, daily range): BP systolic 53–170; BP diastolic 40–95
[2020-07-07] MEDS: IPRATROPIUM/ALBUTEROL 0.5-3(2.5)MG/3ML NEB NEB SCH ×5 (00:18→20:10)
[2020-07-07] MEDS: HYDRALAZINE HCL 100MG TABLET PO SCH ×2 (05:19→17:52)
[2020-07-07] MEDS: BLOOD SUGAR DIAGNOSTIC STRIP TEST SCH ×3 (05:22→17:51)
[2020-07-07] MEDS: INSULIN LISPRO 100 UNITS/ML SUBCUT SCH ×3 (05:22→17:51)
[2020-07-07 05:37] LABS: BASOPHILS % 0.6 % (0.0-2.0); HEMATOCRIT. 33.4 % (36.0-48.0); LYMPHOCYTES % 10.2 % (20.0-50.0); MEAN CORPUSCULAR HEMOGLOBIN 29.4 pg (28.0-32.0); MEAN CORPUSCULAR VOLUME 89.5 fL (81.0-99.0); MEAN PLATELET VOLUME 10.9 fl (7.4-10.4); MONOCYTES % 8.2 % (2.0-8.0); PLATELET 366 x1000/uL (130-400); RED BLOOD CELL COUNT 3.74 mill/uL (4.2-5.4); RED CELL DISTRIBUTION WIDTH 16.3 % (11.6-14.6)
[2020-07-07] MEDS: CEFEPIME 1,000 MG in DEXTROSE 5% WATER 50 ML IV SCH (09:07)
[2020-07-07] MEDS: PANTOPRAZOLE SODIUM 40 MG/VIAL IV SCH ×2 (09:07→21:00)
[2020-07-07] MEDS: LISINOPRIL 40MG TABLET PO SCH (09:07)
[2020-07-07] MEDS: LEVETIRACETAM 500MG PREMIX 100 ML IV SCH ×2 (09:07→21:19)
[2020-07-07] MEDS: CARVEDILOL 12.5MG TABLET PO SCH ×2 (09:08→21:01)
[2020-07-07] MEDS: SPIRONOLACTONE 25MG TABLET PO SCH (09:08)
[2020-07-07] MEDS: LORAZEPAM 2MG/ML CPJ IV PRN (15:10)
[2020-07-08] VITALS (46 sets, daily range): BP systolic 106–167; BP diastolic 54–97
[2020-07-08] MEDS: IPRATROPIUM/ALBUTEROL 0.5-3(2.5)MG/3ML NEB NEB SCH ×6 (00:07→20:38)
[2020-07-08 05:23] LABS: BASOPHILS % 0.8 % (0.0-2.0); EOSINOPHILS % 4.6 % (0.0-5.0); HEMATOCRIT. 32.6 % (36.0-48.0); HEMOGLOBIN. 10.7 g/dL (12.0-16.0); LYMPHOCYTES % 13.6 % (20.0-50.0); MEAN CORPUSCULAR HEMOGLOBIN 29.3 pg (28.0-32.0); MEAN CORPUSCULAR VOLUME 88.9 fL (81.0-99.0); MEAN PLATELET VOLUME 10.3 fl (7.4-10.4); MONOCYTES % 7.7 % (2.0-8.0); NEUTROPHILS % 73.3 % (40.0-76.0); PLATELET 344 x1000/uL (130-400); RED BLOOD CELL COUNT 3.66 mill/uL (4.2-5.4); RED CELL DISTRIBUTION WIDTH 16.6 % (11.6-14.6)
[2020-07-08] MEDS: INSULIN LISPRO 100 UNITS/ML SUBCUT SCH ×4 (06:00→18:00)
[2020-07-08] MEDS: BLOOD SUGAR DIAGNOSTIC STRIP TEST SCH ×4 (06:00→18:04)
[2020-07-08] MEDS: HYDRALAZINE HCL 100MG TABLET PO SCH ×2 (06:39→18:09)
[2020-07-08] MEDS: SPIRONOLACTONE 25MG TABLET PO SCH (08:40)
[2020-07-08] MEDS: LISINOPRIL 40MG TABLET PO SCH (08:40)
[2020-07-08] MEDS: PANTOPRAZOLE SODIUM 40 MG/VIAL IV SCH ×2 (08:40→20:34)
[2020-07-08] MEDS: LEVETIRACETAM 500MG PREMIX 100 ML IV SCH ×2 (08:40→20:33)
[2020-07-08] MEDS: CARVEDILOL 12.5MG TABLET PO SCH ×2 (08:41→20:34)
[2020-07-08 09:11] LABS: BG BASE EXCESS -2.5 mmol/L (-2.0-2.0); BG CARBOXYHEMOGLOBIN 0.3 % (0.5-1.5); BG DEOXYHEMOGLOBIN 1.9 % (0.0-5.0); BG FRACTION INSPIRED OXYGEN 40; BG HCO3 ACT 21.2 mmol/L (22.0-26.0); BG METHEMOGLOBIN 0.3 % (0.0-1.5); BG OXYGEN SATURATION 98.1 % (92.0-98.5); BG OXYHEMOGLOBIN 97.5 % (94.0-97.0); BG PCO2 33.5 mmHg (35.0-45.0); BG PO2 114.1 mmHg (75.0-100.0); BG SAMPLE SITE RIGHT RADIAL; BG TOTAL HEMOGLOBIN 12.1 g/dL (12.0-18.0); BG VENT MODE VENT - AC
[2020-07-09] VITALS (11 sets, daily range): BP systolic 146–171; BP diastolic 69–82
[2020-07-09] MEDS: BLOOD SUGAR DIAGNOSTIC STRIP TEST SCH ×5 (00:02→23:12)
[2020-07-09] MEDS: IPRATROPIUM/ALBUTEROL 0.5-3(2.5)MG/3ML NEB NEB SCH ×6 (00:19→20:36)
[2020-07-09] MEDS: INSULIN LISPRO 100 UNITS/ML SUBCUT SCH ×5 (06:00→23:13)
[2020-07-09 06:02] LABS: EOSINOPHILS % 4.7 % (0.0-5.0); HEMOGLOBIN. 11.8 g/dL (12.0-16.0); LYMPHOCYTES % 11.2 % (20.0-50.0); MEAN CORPUSCULAR HEMOGLOBIN 29.3 pg (28.0-32.0); MEAN CORPUSCULAR VOLUME 89.1 fL (81.0-99.0); MEAN PLATELET VOLUME 10.7 fl (7.4-10.4); MONOCYTES % 7.2 % (2.0-8.0); NEUTROPHILS % 75.9 % (40.0-76.0); PLATELET 347 x1000/uL (130-400); RED BLOOD CELL COUNT 4.04 mill/uL (4.2-5.4); RED CELL DISTRIBUTION WIDTH 16.3 % (11.6-14.6)
[2020-07-09 06:04] LABS: CHLORIDE 121 mEq/L (98-107)
[2020-07-09] MEDS: HYDRALAZINE HCL 100MG TABLET PO SCH ×2 (06:17→17:29)
[2020-07-09] MEDS: LISINOPRIL 40MG TABLET PO SCH (08:44)
[2020-07-09] MEDS: LEVETIRACETAM 500MG PREMIX 100 ML IV SCH ×2 (08:44→20:02)
[2020-07-09] MEDS: PANTOPRAZOLE SODIUM 40 MG/VIAL IV SCH ×2 (08:45→20:02)
[2020-07-09] MEDS: CARVEDILOL 12.5MG TABLET PO SCH ×2 (08:45→20:13)
[2020-07-09] MEDS: SPIRONOLACTONE 25MG TABLET PO SCH (08:45)
[2020-07-09] MEDS: LABETALOL 5MG/ML SYR 20 MG/4 ML SYRINGE IV PRN (14:23)
[2020-07-09] MEDS: ENOXAPARIN 40MG/0.4ML SYR SUBCUT SCH (23:07)
[2020-07-10] VITALS (12 sets, daily range): BP systolic 129–163; BP diastolic 55–82
[2020-07-10] MEDS: IPRATROPIUM/ALBUTEROL 0.5-3(2.5)MG/3ML NEB NEB SCH ×6 (00:03→20:42)
[2020-07-10] MEDS: INSULIN LISPRO 100 UNITS/ML SUBCUT SCH ×3 (06:00→18:00)
[2020-07-10 06:10] LABS: EOSINOPHILS % 3.3 % (0.0-5.0); HEMATOCRIT. 36.5 % (36.0-48.0); LYMPHOCYTES % 11.9 % (20.0-50.0); MEAN CORPUSCULAR HEMOGLOBIN 29.2 pg (28.0-32.0); MEAN CORPUSCULAR VOLUME 89.1 fL (81.0-99.0); MEAN PLATELET VOLUME 10.4 fl (7.4-10.4); MONOCYTES % 6.5 % (2.0-8.0); NEUTROPHILS % 77.3 % (40.0-76.0); PLATELET 348 x1000/uL (130-400)
[2020-07-10] MEDS: BLOOD SUGAR DIAGNOSTIC STRIP TEST SCH ×3 (06:23→18:26)
[2020-07-10] MEDS: HYDRALAZINE HCL 100MG TABLET PO SCH ×2 (06:26→17:40)
[2020-07-10 06:32] LABS: CHLORIDE 121 mEq/L (98-107)
[2020-07-10] MEDS: LISINOPRIL 40MG TABLET PO SCH (08:38)
[2020-07-10] MEDS: CARVEDILOL 12.5MG TABLET PO SCH ×2 (08:39→21:19)
[2020-07-10] MEDS: SPIRONOLACTONE 25MG TABLET PO SCH (08:39)
[2020-07-10] MEDS: PANTOPRAZOLE SODIUM 40 MG/VIAL IV SCH ×2 (08:40→21:19)
[2020-07-10] MEDS: ENOXAPARIN 40MG/0.4ML SYR SUBCUT SCH ×2 (08:41→21:18)
[2020-07-10] MEDS: LEVETIRACETAM 500MG PREMIX 100 ML IV SCH ×2 (08:46→21:18)
[2020-07-10] MEDS: DEXTROSE 5% WATER 1,000 ML IV SCH (12:47)
[2020-07-11] VITALS (14 sets, daily range): BP systolic 117–155; BP diastolic 50–85
[2020-07-11] MEDS: IPRATROPIUM/ALBUTEROL 0.5-3(2.5)MG/3ML NEB NEB SCH ×6 (00:47→20:45)
[2020-07-11] MEDS: INSULIN LISPRO 100 UNITS/ML SUBCUT SCH ×4 (06:00→18:00)
[2020-07-11] MEDS: HYDRALAZINE HCL 100MG TABLET PO SCH ×2 (06:25→17:17)
[2020-07-11] MEDS: BLOOD SUGAR DIAGNOSTIC STRIP TEST SCH ×4 (06:26→18:00)
[2020-07-11 06:33] LABS: BASOPHILS % 0.8 % (0.0-2.0); EOSINOPHILS % 3.6 % (0.0-5.0); HEMATOCRIT. 33.1 % (36.0-48.0); LYMPHOCYTES % 12.2 % (20.0-50.0); MEAN CORPUSCULAR HEMOGLOBIN 29.2 pg (28.0-32.0); MEAN CORPUSCULAR VOLUME 88.1 fL (81.0-99.0); MEAN PLATELET VOLUME 10.6 fl (7.4-10.4); MONOCYTES % 7.9 % (2.0-8.0); NEUTROPHILS % 75.5 % (40.0-76.0); PLATELET 325 x1000/uL (130-400); RED BLOOD CELL COUNT 3.76 mill/uL (4.2-5.4); RED CELL DISTRIBUTION WIDTH 16.2 % (11.6-14.6)
[2020-07-11 06:50] LABS: CHLORIDE 117 mEq/L (98-107)
[2020-07-11] MEDS: LISINOPRIL 40MG TABLET PO SCH (08:23)
[2020-07-11] MEDS: PANTOPRAZOLE SODIUM 40 MG/VIAL IV SCH ×2 (08:23→21:16)
[2020-07-11] MEDS: CARVEDILOL 12.5MG TABLET PO SCH ×2 (08:24→21:17)
[2020-07-11] MEDS: SPIRONOLACTONE 25MG TABLET PO SCH (08:24)
[2020-07-11] MEDS: ENOXAPARIN 40MG/0.4ML SYR SUBCUT SCH ×2 (08:25→21:17)
[2020-07-11] MEDS: LEVETIRACETAM 500MG PREMIX 100 ML IV SCH ×2 (08:25→21:17)
[2020-07-12] VITALS (12 sets, daily range): BP systolic 111–170; BP diastolic 50–84
[2020-07-12] MEDS: IPRATROPIUM/ALBUTEROL 0.5-3(2.5)MG/3ML NEB NEB SCH ×6 (00:53→20:08)
[2020-07-12] MEDS: DEXTROSE 5% WATER 1,000 ML IV SCH ×2 (01:43→12:15)
[2020-07-12] MEDS: BLOOD SUGAR DIAGNOSTIC STRIP TEST SCH ×4 (05:53→18:01)
[2020-07-12] MEDS: INSULIN LISPRO 100 UNITS/ML SUBCUT SCH ×4 (05:53→18:00)
[2020-07-12] MEDS: HYDRALAZINE HCL 100MG TABLET PO SCH ×2 (05:55→18:41)
[2020-07-12 06:06] LABS: BASOPHILS % 0.6 % (0.0-2.0); EOSINOPHILS % 3.9 % (0.0-5.0); HEMATOCRIT. 33.4 % (36.0-48.0); LYMPHOCYTES % 11.6 % (20.0-50.0); MEAN CORPUSCULAR HEMOGLOBIN 29.1 pg (28.0-32.0); MEAN CORPUSCULAR VOLUME 88.6 fL (81.0-99.0); MEAN PLATELET VOLUME 10.9 fl (7.4-10.4); MONOCYTES % 5.9 % (2.0-8.0); PLATELET 310 x1000/uL (130-400); RED BLOOD CELL COUNT 3.77 mill/uL (4.2-5.4); RED CELL DISTRIBUTION WIDTH 16.2 % (11.6-14.6)
[2020-07-12 06:34] LABS: CHLORIDE 116 mEq/L (98-107)
[2020-07-12] MEDS: LEVETIRACETAM 500MG PREMIX 100 ML IV SCH ×2 (08:31→20:54)
[2020-07-12] MEDS: PANTOPRAZOLE SODIUM 40 MG/VIAL IV SCH ×2 (08:31→20:53)
[2020-07-12] MEDS: ENOXAPARIN 40MG/0.4ML SYR SUBCUT SCH ×2 (08:32→20:54)
[2020-07-12] MEDS: SPIRONOLACTONE 25MG TABLET PO SCH (08:33)
[2020-07-12] MEDS: LISINOPRIL 40MG TABLET PO SCH (08:33)
[2020-07-12] MEDS: CARVEDILOL 12.5MG TABLET PO SCH ×2 (08:34→20:54)
[2020-07-12] MEDS: ACETAMINOPHEN 650MG/20.3ML UDC PO PRN (18:40)
[2020-07-13] VITALS (7 sets, daily range): BP systolic 111–151; BP diastolic 44–73
[2020-07-13] MEDS: BLOOD SUGAR DIAGNOSTIC STRIP TEST SCH ×2 (00:28→05:27)
[2020-07-13] MEDS: IPRATROPIUM/ALBUTEROL 0.5-3(2.5)MG/3ML NEB NEB SCH ×2 (01:02→08:45)
[2020-07-13] MEDS: INSULIN LISPRO 100 UNITS/ML SUBCUT SCH ×2 (05:27)
[2020-07-13] MEDS: HYDRALAZINE HCL 100MG TABLET PO SCH (06:03)
[2020-07-13] MEDS: LEVETIRACETAM 500MG PREMIX 100 ML IV SCH (08:16)
[2020-07-13] MEDS: ENOXAPARIN 40MG/0.4ML SYR SUBCUT SCH (08:17)
[2020-07-13] MEDS: PANTOPRAZOLE SODIUM 40 MG/VIAL IV SCH (08:17)
[2020-07-13] MEDS: LISINOPRIL 40MG TABLET PO SCH (08:19)
[2020-07-13] MEDS: CARVEDILOL 12.5MG TABLET PO SCH (08:19)
[2020-07-13] MEDS: SPIRONOLACTONE 25MG TABLET PO SCH (08:20)
== END 2020-07-13 14:22 | DRG 4 ==
LOC: ER 16:14 → CVICU 19:42 → EDBEDREQSVC 19:49 → EDBEDREQTM 19:49 → EDBEDREQ 19:49 → ENRESERV 06-23 07:04 → MICUSO 06-23 18:04 → MICUNO 06-25 08:30 → 5EST 07-08 11:30
PROVIDERS: ADMIT Internal Medicine; ATTEND Internal Medicine
PROC: 5A1955Z Respiratory Ventilation, Greater than 96 Consecutive Hours (ICD-10-PCS; principal; 2020-06-22)
PROC: 06HY33Z Insertion of Infusion Device into Lower Vein, Percutaneous Approach (ICD-10-PCS; 2020-06-22)
PROC: B54BZZA Ultrasonography of Right Lower Extremity Veins, Guidance (ICD-10-PCS; 2020-06-22)
PROC: 0BH17EZ Insertion of Endotracheal Airway into Trachea, Via Natural or Artificial Opening (ICD-10-PCS; 2020-06-22)
PROC: 4A00X4Z Measurement of Central Nervous Electrical Activity, External Approach (ICD-10-PCS; 2020-06-26)
PROC: 0B113F4 Bypass Trachea to Cutaneous with Tracheostomy Device, Percutaneous Approach (ICD-10-PCS; 2020-07-04)
PROC: 0GBJ3ZZ Excision of Thyroid Gland Isthmus, Percutaneous Approach (ICD-10-PCS; 2020-07-04)
PROC: 0DH63UZ Insertion of Feeding Device into Stomach, Percutaneous Approach (ICD-10-PCS; 2020-07-05)
PROC: 0DB68ZX Excision of Stomach, Via Natural or Artificial Opening Endoscopic, Diagnostic (ICD-10-PCS; 2020-07-05)
DX: A41.1 Sepsis due to other specified staphylococcus (principal); I50.43 Acute on chronic combined systolic (congestive) and diastolic (congestive) heart failure; J18.9 Pneumonia, unspecified organism; I21.4 Non-ST elevation (NSTEMI) myocardial infarction; E44.1 Mild protein-calorie malnutrition; I16.1 Hypertensive emergency; I42.9 Cardiomyopathy, unspecified; E87.2 Acidosis; I42.0 Dilated cardiomyopathy; E87.6 Hypokalemia; E66.01 Morbid (severe) obesity due to excess calories; E11.65 Type 2 diabetes mellitus with hyperglycemia; K76.0 Fatty (change of) liver, not elsewhere classified; J96.01 Acute respiratory failure with hypoxia; J96.02 Acute respiratory failure with hypercapnia; R65.20 Severe sepsis without septic shock; Z20.828 Contact with and (suspected) exposure to other viral communicable diseases; I25.10 Atherosclerotic heart disease of native coronary artery without angina pectoris; I46.9 Cardiac arrest, cause unspecified; N17.9 Acute kidney failure, unspecified; G93.2 Benign intracranial hypertension; A41.89 Other specified sepsis; G93.41 Metabolic encephalopathy; E87.0 Hyperosmolality and hypernatremia; G93.1 Anoxic brain damage, not elsewhere classified; J44.9 Chronic obstructive pulmonary disease, unspecified; J15.9 Unspecified bacterial pneumonia; I11.0 Hypertensive heart disease with heart failure; K29.70 Gastritis, unspecified, without bleeding; R56.9 Unspecified convulsions; Z68.43 Body mass index [BMI] 50.0-59.9, adult; Z87.891 Personal history of nicotine dependence; Z78.1 Physical restraint status; I25.2 Old myocardial infarction; Z93.1 Gastrostomy status; Z79.84 Long term (current) use of oral hypoglycemic drugs; Z82.49 Family history of ischemic heart disease and other diseases of the circulatory system; Z95.1 Presence of aortocoronary bypass graft
CPT/HCPCS: 36415; 36600; 71045; 71275; 76536; 76770; 80048; 80053; 80061; 80202; 80305; 81003; 82040; 82140; 82375; 82550; 82553; 82728; 82805; 82962; 83036; 83605; 83615; 83735; 83880; 84100; 84132; 84134; 84145; 84439; 84443; 84478; 84481; 84484; 84703; 85025; 85379; 86140; 86705; 86709; 86803; 86850; 86870; 86900; 87070; 87340; 87389; 87426; 87635; 88305; 88313; 93005; 93306; 93970; 94002; 94003; 94640; 95816; 99291; A6261; C9113; J0461; J0692; J1650; J1815; J1940; J1953; J2060; J2250; J2405; J2543; J2704; J3010; J3370; J3480; J3490; J7040; J7050; J7060; J7070; Q9967

== ENCOUNTER 2020-08-18 13:48 | Inpatient (IN) | payer MEDICAID ==
[~2020-08-18] VITALS: Ht 167.6 cm; Wt 127.0 kg
[2020-08-18] MEDS ORDERED: PIPERACILLIN/TAZ 3.375G PREMIX 50 ML IV ONE (14:00)
[2020-08-18] MEDS ORDERED: VANCOMYCIN 1 G PREMIX 200 ML IV ONE (14:00)
[2020-08-18 14:56] LABS: CHLORIDE 107 mEq/L (98-107)
[2020-08-18 15:00] LABS: PROTHROMBIN TIME 10.9 sec (9.6-11.0)
[2020-08-18 15:02] LABS: CLARITY URINE CLOUDY (CLEAR); COLOR URINE DK YELLOW (YELLOW); KETONES URINE TRACE (NEGATIVE); LEUKOCYTE ESTERASE URINE 2+ (NEGATIVE); NITRITE URINE NEGATIVE (NEGATIVE); OCCULT BLOOD URINE 3+ (NEGATIVE); PROTEIN URINE 2+ (NEGATIVE); SPECIFIC GRAVITY URINE 1.029 (1.005-1.030)
[2020-08-18 15:06] LABS: CREATINE KINASE 187 IU/L (26-192)
[2020-08-18 16:50] LABS: BASOPHILS % 0.2 % (0.0-2.0); EOSINOPHILS % 0.1 % (0.0-5.0); HEMATOCRIT. 37.3 % (36.0-48.0); HEMOGLOBIN. 12.3 g/dL (12.0-16.0); LYMPHOCYTES % 9.4 % (20.0-50.0); MEAN CORPUSCULAR HEMOGLOBIN 29.2 pg (28.0-32.0); MEAN CORPUSCULAR VOLUME 88.6 fL (81.0-99.0); MEAN PLATELET VOLUME 10.3 fl (7.4-10.4); MONOCYTES % 1.7 % (2.0-8.0); NEUTROPHILS % 88.6 % (40.0-76.0); PLATELET 490 x1000/uL (130-400); RED BLOOD CELL COUNT 4.21 mill/uL (4.2-5.4); RED CELL DISTRIBUTION WIDTH 17.9 % (11.6-14.6)
[2020-08-18] MEDS ORDERED: NOREPINEPHRINE 8MG/250ML PMX 250 ML IV ONE (18:15)
[2020-08-18 18:19] LABS: BG BASE EXCESS 1.9 mmol/L (-2.0-2.0); BG CARBOXYHEMOGLOBIN 0.3 % (0.5-1.5); BG DEOXYHEMOGLOBIN 1.7 % (0.0-5.0); BG HCO3 ACT 25.3 mmol/L (22.0-26.0); BG OXYGEN SATURATION 98.3 % (92.0-98.5); BG PCO2 35.9 mmHg (35.0-45.0); BG PH 7.466 (7.350-7.450); BG PO2 122.3 mmHg (75.0-100.0); BG TOTAL HEMOGLOBIN 13.5 g/dL (12.0-18.0)
[2020-08-18 18:20] LABS: BG FRACTION INSPIRED OXYGEN 100; BG SAMPLE SITE RIGHT BRACHIAL; BG VENT MODE MASK - NRB
[2020-08-18] MEDS ORDERED: CLONIDINE 0.1MG TABLET PO PRN (20:30)
[2020-08-18] MEDS ORDERED: DOCUSATE SODIUM 100MG CAPSULE PO PRN (20:30)
[2020-08-18] MEDS ORDERED: HYDROCODONE/ACETAMINOPHEN 5/325MG TABLET PO PRN (20:30)
[2020-08-18] MEDS ORDERED: ACETAMINOPHEN 325MG TABLET PO PRN ×2 (20:30)
[2020-08-18] MEDS ORDERED: ONDANSETRON HCL 4MG/2ML INJ IV PRN (20:30)
[2020-08-18] MEDS ORDERED: LORAZEPAM 0.5MG TABLET PO PRN (20:30)
[2020-08-18] MEDS ORDERED: IPRATROPIUM/ALBUTEROL 0.5-3(2.5)MG/3ML NEB HHN PRN (20:30)
[2020-08-18] MEDS ORDERED: PHENYLEPHRINE 50 MG in DEXTROSE 5% WATER 250 ML IV PRN (21:15)
[2020-08-18] MEDS: PIPERACILLIN/TAZ 3.375G PREMIX 50 ML IV SCH (21:17)
[2020-08-18] MEDS: VANCOMYCIN 1 G PREMIX 200 ML IV SCH (23:05)
[2020-08-19] MEDS ORDERED: ALBUMIN HUMAN 25GM/100ML (25%) IV SCH (01:00)
[2020-08-19] MEDS ORDERED: NOREPINEPHRINE 8 MG in DEXT 5% WATER 242 ML IV SCH (03:00)
[2020-08-19 04:40] LABS: BASOPHILS % 0.1 % (0.0-2.0); HEMATOCRIT. 31.5 % (36.0-48.0); HEMOGLOBIN. 10.5 g/dL (12.0-16.0); LYMPHOCYTES % 8.8 % (20.0-50.0); MEAN CORPUSCULAR HEMOGLOBIN 29.4 pg (28.0-32.0); MEAN CORPUSCULAR VOLUME 88.1 fL (81.0-99.0); MEAN PLATELET VOLUME 9.8 fl (7.4-10.4); MONOCYTES % 4.1 % (2.0-8.0); PLATELET 327 x1000/uL (130-400); RED BLOOD CELL COUNT 3.57 mill/uL (4.2-5.4); RED CELL DISTRIBUTION WIDTH 18.2 % (11.6-14.6)
[2020-08-19] MEDS: VANCOMYCIN 1 G PREMIX 200 ML IV SCH (07:00)
[2020-08-19] MEDS: PIPERACILLIN/TAZ 3.375G PREMIX 50 ML IV SCH (07:08)
[2020-08-19] MEDS ORDERED: DEXTROSE 50% WATER 50ML SYRINGE IV PRN (10:15)
[2020-08-19] MEDS ORDERED: VASOPRESSIN 20 UNIT in SODIUM CHLORIDE 0.9% 99 ML IV SCH (10:30)
[2020-08-19] MEDS ORDERED: BLOOD SUGAR DIAGNOSTIC STRIP TEST SCH (11:00)
[2020-08-19] MEDS ORDERED: INSULIN LISPRO 100 UNITS/ML SUBCUT SCH (12:00)
[2020-08-19] MEDS ORDERED: CEFEPIME 1,000 MG in DEXTROSE 5% WATER 50 ML IV SCH (12:00)
[2020-08-19] MEDS ORDERED: ASPIRIN 325MG TABLET GT ONE (12:15)
[2020-08-19] MEDS ORDERED: ENOXAPARIN 40MG/0.4ML SYR SUBCUT SCH (16:00)
[2020-08-19 16:55] VITALS: BP 0/0
[2020-08-20] MEDS ORDERED: PANTOPRAZOLE SODIUM 40 MG/VIAL IV SCH (09:00)
== END 2020-08-19 18:30 | disposition expired | DRG 720 ==
LOC: ER 13:52 → MICUSO 18:34 → EDBEDREQTM 18:36 → EDBEDREQ 18:36 → EDBEDREQSVC 18:36
PROVIDERS: ADMIT Internal Medicine; ATTEND Internal Medicine
PROC: 5A1945Z Respiratory Ventilation, 24-96 Consecutive Hours (ICD-10-PCS; principal; 2020-08-18)
PROC: 05HY33Z Insertion of Infusion Device into Upper Vein, Percutaneous Approach (ICD-10-PCS; 2020-08-18)
PROC: 06HY33Z Insertion of Infusion Device into Lower Vein, Percutaneous Approach (ICD-10-PCS; 2020-08-19)
PROC: B54CZZA Ultrasonography of Left Lower Extremity Veins, Guidance (ICD-10-PCS; 2020-08-19)
DX: A41.9 Sepsis, unspecified organism (principal); D64.9 Anemia, unspecified; E11.65 Type 2 diabetes mellitus with hyperglycemia; E66.01 Morbid (severe) obesity due to excess calories; E87.2 Acidosis; F03.90 Unspecified dementia, unspecified severity, without behavioral disturbance, psychotic disturbance, mood disturbance, and anxiety; I11.0 Hypertensive heart disease with heart failure; I42.0 Dilated cardiomyopathy; I50.42 Chronic combined systolic (congestive) and diastolic (congestive) heart failure; J44.0 Chronic obstructive pulmonary disease with (acute) lower respiratory infection; J69.0 Pneumonitis due to inhalation of food and vomit; J96.21 Acute and chronic respiratory failure with hypoxia; J96.22 Acute and chronic respiratory failure with hypercapnia; N17.9 Acute kidney failure, unspecified; K21.9 Gastro-esophageal reflux disease without esophagitis; I21.3 ST elevation (STEMI) myocardial infarction of unspecified site; F41.9 Anxiety disorder, unspecified; R00.1 Bradycardia, unspecified; E07.9 Disorder of thyroid, unspecified; R57.0 Cardiogenic shock; K76.0 Fatty (change of) liver, not elsewhere classified; R65.21 Severe sepsis with septic shock; Z20.828 Contact with and (suspected) exposure to other viral communicable diseases; Z79.84 Long term (current) use of oral hypoglycemic drugs; Z99.11 Dependence on respirator [ventilator] status; Z93.1 Gastrostomy status; Z93.0 Tracheostomy status
CPT/HCPCS: 36415; 36600; 71045; 76700; 80048; 80053; 80202; 81003; 82375; 82550; 82805; 82962; 83605; 84145; 84484; 85025; 87077; 87186; 87635; 93005; 94002; 96365; 99291; J0692; J1815; J2405; J2543; J3370; J3490; J7050; J7060; P9047; A4315